=== PATIENT | female | born 1990 | race Caucasian/White ===

== ENCOUNTER 2024-12-15 13:03 | Emergency (ER) | payer MEDICAID ==
[~2024-12-15] VITALS: Ht 167.6 cm; Wt 95.0 kg
[2024-12-15 13:29] VITALS: BP 126/64; PULSE 93; RESP 18; TEMP 36.9; O2SAT 99
== END 2024-12-15 17:14 | disposition left against medical advice (07) ==
LOC: ER 13:03
DX: Z00.00 Encounter for general adult medical examination without abnormal findings (principal); Z53.21 Procedure and treatment not carried out due to patient leaving prior to being seen by health care provider

== ENCOUNTER 2024-12-15 18:55 | Emergency (ER) | payer MEDICAID ==
[~2024-12-15] VITALS: Ht 167.6 cm; Wt 96.0 kg
[2024-12-15 19:46] VITALS: BP 160/97; PULSE 91; RESP 18; TEMP 36.8; O2SAT 100
== END 2024-12-15 21:30 | disposition left against medical advice (07) ==
LOC: ER 18:55
DX: M54.2 Cervicalgia (principal); M54.9 Dorsalgia, unspecified; Z53.21 Procedure and treatment not carried out due to patient leaving prior to being seen by health care provider